=== PATIENT | female | born 1975 | race Caucasian/White ===

== ENCOUNTER → 2016-12-07 | Outpatient (CLI) | payer OTHER | END | disposition home or self-care (01) | LOC: CFH 11:11 | PROVIDERS: ATTEND Nurse Practitioner Family | DX: Z12.31 Encounter for screening mammogram for malignant neoplasm of breast (principal) | CPT/HCPCS: G0202 ==

== ENCOUNTER → 2018-11-21 | Outpatient (CLI) | payer OTHER | END | disposition home or self-care (01) | LOC: CARD 14:21 | PROVIDERS: ATTEND Nurse Practitioner | DX: J45.998 Other asthma (principal) | CPT/HCPCS: 94060; 94726; 94729 ==

== ENCOUNTER 2020-04-19 07:52 | Emergency (ER) | payer OTHER ==
[~2020-04-19] VITALS: Ht 160 cm; Wt 50.0 kg
[2020-04-19 07:59] VITALS: BP 150/103
--- NOTE | 2020-04-19 08:10 | NUR ---
PATIENT WALKED BACK FROM TRIAGE WITH CHIEF COMPLAINT OF TESTING POSITIVE FOR COVID TUESDAY 04/17 AFTER TRAVELING OUTSIDE OF [place]. PATIENT STATES THIS MORNING SHE HAD SOME CHEST TIGHTNESS AND HAS BEEN COUGHING UP MORE PHLEGM. PATIENT HAS HISTORY OF ASTHMA, A&OX4, NO APPARENT SIGNS OF DISTRESS. PROVIDER AT BEDSIDE FOR EVALUATION.
[2020-04-19] MEDS ORDERED: ALBU0.63 NEB (08:18)
[2020-04-19] MEDS ORDERED: FLUT1DIS3 INH (08:18)
--- NOTE | 2020-04-19 08:55 | NUR ---
Patient given discharge instructions and they have confirmed that they understand the instructions, no questions. Patient ambulatory with steady gait to discharge desk.
== END 2020-04-19 09:07 | disposition home or self-care (01) ==
LOC: ED 08:37
DX: R06.00 Dyspnea, unspecified (principal); I51.7 Cardiomegaly; R07.89 Other chest pain; J45.909 Unspecified asthma, uncomplicated
CPT/HCPCS: 71045; 93005; 99283

== ENCOUNTER → 2020-06-26 | Outpatient (CLI) | payer OTHER ==
[~2020-06-26] MED LIST: ALBU0.63 NEB; FLUT1DIS3 INH
== END | disposition home or self-care (01) ==
LOC: CFH 07:55
DX: R92.8 Other abnormal and inconclusive findings on diagnostic imaging of breast (principal)
CPT/HCPCS: 77066; G0279